=== PATIENT | female | born 1935 | race Caucasian/White ===

== ENCOUNTER 2016-10-31 15:32 | Observation (INO) | payer MEDICARE, OTHER ==
[~2016-10-31] VITALS: Ht 165.1 cm; Wt 103.9 kg
[2016-10-31 15:34] VITALS: BP 82/45
[2016-10-31] MEDS ORDERED: ATIVAN GENERIC0.5 MG PO (15:42)
[2016-10-31] MEDS ORDERED: MECLIZINE HYDRO25 M2 PO (15:43)
[2016-10-31] MEDS ORDERED: ATORVASTATIN CA40 MG PO (15:43)
[2016-10-31] MEDS ORDERED: GABAPENTIN300 M1 PO (15:44)
[2016-10-31] MEDS ORDERED: GLIMEPIRIDE1 MG PO (15:45)
[2016-10-31] MEDS ORDERED: HYDROCHLOROTHIA1 TA2 PO (15:45)
[2016-10-31] MEDS ORDERED: ROPINIROLE HYDRO1 M1 PO (15:46)
[2016-10-31 15:52] LABS: LYMPH % 26.9 % (10-50.0)
[2016-10-31 15:53] LABS: LYMPH # 2.2 K/mm3 (0.7-4.5)
[2016-10-31 15:59] LABS: HEMOGLOBIN 11.7 g/dL (12.2-16.2)
[2016-10-31 16:21] LABS: BUN 43 mg/dL (7-18)
[2016-10-31 16:22] LABS: FREE THYROXIN INDEX 5.7 ug/dl (5.93-13.13)
[2016-10-31 16:24] LABS: GFR (ESTIMATED) 21 ML/MIN (59-)
--- NOTE | 2016-10-31 18:04 | Emergency Room Report ---
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 She was found to be hypotensive by EMS ~ 90 systolic. States she is exhausted and has been taking a benzo to help her nerves. 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 N Clinical Suspician of Infection? N Mental Status: 1 - Regular (Normal Baseline) Sepsis Risk:Low Sepsis Risk Have you (or family members/close friends) recently traveled outside the [place]? N If Yes, where/when: Have you had exposure to infectious disease within the past month? N TB? Other? Specify: Source patient, RN notes reviewed, family, RN/MD, EMS notes reviewed Exam Limitations no limitations Comment This is an 81-year-old lady who has been at her son's all day long, and now she feels dizzy, weak, presyncopal. One of her acquaintances has check her blood pressure, and a reading of 80/40 was obtained. Patient has been eating poorly over the past few days after her son , taking benzodiazepines for her anxiety and grief. She denies any chest pain or shortness of breath at this time. She hasn't slept well in 3 days. ALLERGIES Coded Allergies: No Known Allergies (10/31/16) Home Medications Reported Medications Lorazepam (Ativan) 0.5 MG PO TIDP PRN ANXIETY #20 MECLIZINE HCL (ANTIVERT 25MG (generic)) 25 MG PO TIDP PRN DIZZINESS #180 Atorvastatin Calcium 40 MG PO DAILY #90 Gabapentin 300 MG PO BID #180 Glimepiride 1 MG PO DAILY #90 LISINOPRIL/HYDROCHLOROTHIAZIDE (Lisinopril-Hctz 20-25 MG Tab) 1 TAB PO BID #180 ROPINIROLE HCL (Ropinirole Hydrochloride) 1 MG PO QHS #90 History Medical History General CAD? Yes Angina: No PR: No Hypertension? Yes Hyperlipidemia? Yes CHF? No DVT? No PE? No COPD? No Asthma? No Anemia? No GERD? No Gastric ulcers? No GI Bleed? No Hernia? No Thyroid Problems? No Hypothyroidism? No CVA? No Seizures? No Diabetes? Yes Insulin Dependent: No Insulin Pump: No Home FSBS? Yes Renal Insuffiency? No End Stage Renal Disease? No UTI? No Stones? No BPH? No GB Disease: No Nephritic Syndrome? No Asplenia? No Hepatitis? No Sickle Cell Disease? No Arthritis? Yes Migraines? No Cataracts? No Glaucoma? No MRSA? No HIV? No TB? No Anxiety? No Depression? No Cancer? No Site: N More? No Immunization Hx Ped.Immunizations UTD Yes DT/Tetanus Unknown Surgical Hx Previous Surgery?Y Gallbladder (Other) Social History Smoking Hx Smoker: Never Smoker Tobacco: No Type N/A Are you/the child exposed to second-hand smoke: No Alcohol Alcohol: No Review of Systems All Other Systems Reviewed and Negative Psychiatric/Neurological weakness, other (dizziness) Physical Exam Vital Signs Vital Signs Date Time Temp Pulse Resp B/P Pulse O2 O2 Flow FiO2 Ox Delivery Rate 10/31 1642 65 20 92/43 98 10/31 1611 85 113/33 10/31 1610 78 95/33 10/31 1610 76 118/50 10/31 1534 90 10/31 1534 98.2 82 18 82/45 90 General Appearance normal appearance, WD/WN, moderate distress, lethargic Neck normal inspection, non-tender, supple, full range of motion Respiratory Status Yes: trachea midline, chest symmetrical, non tender chest. No: respiratory distress. Lung Sounds bilateral: normal breath sounds, lungs clear. 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 Medical Decision Making LABS/Meds/Orders Pt receiving controlled substance in ED? No Comment 17:15-case d/w Dr Behzad Ramey, advised of patient's presentation, physical exam, electrocardiogram/lab findings, ED course, lack of any improvement after receiving a bag of IV fluids, as well as the orthostatic blood pressure changes, consistent with dehydration. Dr. Ramey agreeable with admission, place patient in telemetry/observation. Care transferred Dr. Ramey at this time. I will write temporary bridge admission orders, per hospital protocol. Upon patient's arrival to the unit, the thread laster/nurse will contact Dr. Ramey in order to obtain full inpatient admission orders. Results/Orders Laboratory Tests 10/31/161544: TSH 2.68, Free T4 Index 5.7 L, Thyroxine (T4) 6.0, T3 Uptake 38 10/31/161544: Sodium 140, Potassium 4.4, Chloride 104, Carbon Dioxide 24, BUN 43 H, Creatinine 2.2 H, Estimated Creat Clear 31 L, Estimated GFR (MDRD) 21 L, Glucose 96, Calcium 9.2, Total Bilirubin 0.4, AST 36, ALT 31, Alkaline Phosphatase 123 H, Creatine Kinase 356 H, CK and CKMB Interp 5.0 H, Troponin I < 0.02, Total Protein 7.3, Albumin 3.1 L, Globulin 4.2 H, Albumin/Globulin Ratio 0.7 L, WBC 8.0, RBC 3.58 L, Hgb 11.7 L, Hct 34.7 L, MCV 97.1, RDW 13.5 , Plt Count 272, MPV 6.6 L, Gran % 62.8, Gran # 5.0, Lymphocytes % 26.9, Monocytes % 6.0, Eosinophils % 4.0, Basophils % 0.3, Lymphocytes # 2.2, Monocytes # 0.5, Eosinophils # 0.3, Basophils # 0.0, PUBS MCHC 33.8, MCH 32.8 H Current Medication Orders Sig/Los Start time Last Medication Dose Route Stop Time Status Admin Aspirin 0 .STK-MED ONE 10/31 1554 DC .ROUTE Aspirin 325 MG ONCE ONE 10/31 1545 DC 10/31 PO 10/31 1546 1557 Sodium Chloride 10 ML PRN PRN 10/31 1545 AC IV 11/01 1537 Sodium Chloride 1,000 ML .Q1H1M 10/31 154 DC 10/31 IV 10/31 1645 1550 Sodium Chloride 10 ML PRN PRN 10/31 1545 AC IV 11/01 1538 Sodium Chloride 1,000 ML .STK-MED ONE 10/31 1536 DC IV Orders Procedure Date/time Status 12 LEAD EKG-YOLYSON (INITIAL) 10/31 1540 Active THYROID PANEL 2 (WITH TSH) 10/31 1539 Complete ELECTROCARDIOGRAM REQUEST 10/31 1538 Active IV SALINE LOCK 10/31 1538 Active OXYGEN PER NURSE 10/31 1538 Active POCKET CUTTER 10/31 1538 Active ORTHOSTATIC B/P 10/31 1538 Active TROPONIN I 10/31 1538 Complete DRUG ABUSE SCREEN (10) 10/31 1538 Active CPK 10/31 1538 Complete COMPLETE METABOLIC PANEL 10/31 1538 Complete CKMB 10/31 1538 Complete CBC WITH AUTO DIFF 10/31 1538 Complete ORTHOSTATIC B/P 10/31 1537 Active CM/EKG CM/presser automatic Rhythm Normal Sinus Rhythm Rate 85 Ectopy No Comments No acute ischemic changes EKG rate, NSR, rhythm, no evid. of ischemic chgs, no ectopy, normal QRS, normal OH, no EKG for comparison, non-spec. ST/Twave chgs, ST elevation, ST depression, LBBB, RBBB, ectopy, abnormal Q waves Departure Departure Time of Disposition 1715 Disposition Still a Patient Clinical Impression Primary Impression: Hypotension Qualifiers: Hypotension type: unspecified hypotension type Qualified Code: I95.9 - Hypotension, unspecified Secondary Impressions: Acute kidney injury Dehydration Generalized weakness Rhabdomyolysis Qualifiers: Rhabdomyolysis type: non-traumatic Qualified Code: M62.82 - Rhabdomyolysis Condition STABLE Referrals Tomasa Ramey MD (Family) ED Critical Care Critical Care No at 1912
--- NOTE | 2016-10-31 18:04 | Emergency Room Report ---
History of Present Illness Time Seen by [id number] Presenting Problem in Triage Pt arrived:Ambulance Stretcher Presenting Problem:Patient was at her son's when she became weak and dizzy. She was found to be hypotensive by EMS ~ 90 systolic. States she is exhausted and has been taking a benzo to help her nerves. 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 N Clinical Suspician of Infection? N Mental Status: 1 - Regular (Normal Baseline) Sepsis Risk:Low Sepsis Risk Have you (or family members/close friends) recently traveled outside the [place]? N If Yes, where/when: Have you had exposure to infectious disease within the past month? N TB? Other? Specify: Source patient, RN notes reviewed, family, RN/MD, EMS notes reviewed Exam Limitations no limitations Comment This is an 81-year-old lady who has been at her son's all day long, and now she feels dizzy, weak, presyncopal. One of her acquaintances has check her blood pressure, and a reading of 80/40 was obtained. Patient has been eating poorly over the past few days after her son , taking benzodiazepines for her anxiety and grief. She denies any chest pain or shortness of breath at this time. She hasn't slept well in 3 days. ALLERGIES Coded Allergies: No Known Allergies (10/31/16) Home Medications Reported Medications Lorazepam (Ativan) 0.5 MG PO TIDP PRN ANXIETY #20 MECLIZINE HCL (ANTIVERT 25MG (generic)) 25 MG PO TIDP PRN DIZZINESS #180 Atorvastatin Calcium 40 MG PO DAILY #90 Gabapentin 300 MG PO BID #180 Glimepiride 1 MG PO DAILY #90 LISINOPRIL/HYDROCHLOROTHIAZIDE (Lisinopril-Hctz 20-25 MG Tab) 1 TAB PO BID #180 ROPINIROLE HCL (Ropinirole Hydrochloride) 1 MG PO QHS #90 History Medical History General CAD? Yes Angina: No NE: No Hypertension? Yes Hyperlipidemia? Yes CHF? No DVT? No PE? No COPD? No Asthma? No Anemia? No GERD? No Gastric ulcers? No GI Bleed? No Hernia? No Thyroid Problems? No Hypothyroidism? No CVA? No Seizures? No Diabetes? Yes Insulin Dependent: No Insulin Pump: No Home FSBS? Yes Renal Insuffiency? No End Stage Renal Disease? No UTI? No Stones? No BPH? No GB Disease: No Nephritic Syndrome? No Asplenia? No Hepatitis? No Sickle Cell Disease? No Arthritis? Yes Migraines? No Cataracts? No Glaucoma? No MRSA? No HIV? No TB? No Anxiety? No Depression? No Cancer? No Site: N More? No Immunization Hx Ped.Immunizations UTD Yes DT/Tetanus Unknown Surgical Hx Previous Surgery?Y Gallbladder (Other) Social History Smoking Hx Smoker: Never Smoker Tobacco: No Type N/A Are you/the child exposed to second-hand smoke: No Alcohol Alcohol: No Review of Systems All Other Systems Reviewed and Negative Psychiatric/Neurological weakness, other (dizziness) Physical Exam Vital Signs Vital Signs Date Time Temp Pulse Resp B/P Pulse O2 O2 Flow FiO2 Ox Delivery Rate 10/31 1642 65 20 92/43 98 10/31 1611 85 113/33 10/31 1610 78 95/33 10/31 1610 76 118/50 10/31 1534 90 10/31 1534 98.2 82 18 82/45 90 General Appearance normal appearance, WD/WN, moderate distress, lethargic Neck normal inspection, non-tender, supple, full range of motion Respiratory Status Yes: trachea midline, chest symmetrical, non tender chest. No: respiratory distress. Lung Sounds bilateral: normal breath sounds, lungs clear. 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 Medical Decision Making LABS/Meds/Orders Pt receiving controlled substance in ED? No Comment 17:15-case d/w Dr Behzad Ramey, advised of patient's presentation, physical exam, electrocardiogram/lab findings, ED course, lack of any improvement after receiving a bag of IV fluids, as well as the orthostatic blood pressure changes, consistent with dehydration. Dr. Ramey agreeable with admission, place patient in telemetry/observation. Care transferred Dr. Ramey at this time. I will write temporary bridge admission orders, per hospital protocol. Upon patient's arrival to the unit, the dental secretary/nurse will contact Dr. Ramey in order to obtain full inpatient admission orders. Results/Orders Laboratory Tests 10/31/161544: TSH 2.68, Free T4 Index 5.7 L, Thyroxine (T4) 6.0, T3 Uptake 38 10/31/161544: Sodium 140, Potassium 4.4, Chloride 104, Carbon Dioxide 24, BUN 43 H, Creatinine 2.2 H, Estimated Creat Clear 31 L, Estimated GFR (MDRD) 21 L, Glucose 96, Calcium 9.2, Total Bilirubin 0.4, AST 36, ALT 31, Alkaline Phosphatase 123 H, Creatine Kinase 356 H, CK and CKMB Interp 5.0 H, Troponin I < 0.02, Total Protein 7.3, Albumin 3.1 L, Globulin 4.2 H, Albumin/Globulin Ratio 0.7 L, WBC 8.0, RBC 3.58 L, Hgb 11.7 L, Hct 34.7 L, MCV 97.1, RDW 13.5 , Plt Count 272, MPV 6.6 L, Gran % 62.8, Gran # 5.0, Lymphocytes % 26.9, Monocytes % 6.0, Eosinophils % 4.0, Basophils % 0.3, Lymphocytes # 2.2, Monocytes # 0.5, Eosinophils # 0.3, Basophils # 0.0, PUBS MCHC 33.8, MCH 32.8 H Current Medication Orders Sig/Los Start time Last Medication Dose Route Stop Time Status Admin Aspirin 0 .STK-MED ONE 10/31 1554 DC .ROUTE Aspirin 325 MG ONCE ONE 10/31 1545 DC 10/31 PO 10/31 1546 1557 Sodium Chloride 10 ML PRN PRN 10/31 1545 AC IV 11/01 1537 Sodium Chloride 1,000 ML .Q1H1M 10/31 154 DC 10/31 IV 10/31 1645 1550 Sodium Chloride 10 ML PRN PRN 10/31 1545 AC IV 11/01 1538 Sodium Chloride 1,000 ML .STK-MED ONE 10/31 1536 DC IV Orders Procedure Date/time Status 12 LEAD EKG-YOLYSON (INITIAL) 10/31 1540 Active THYROID PANEL 2 (WITH TSH) 10/31 1539 Complete ELECTROCARDIOGRAM REQUEST 10/31 1538 Active IV SALINE LOCK 10/31 1538 Active OXYGEN PER NURSE 10/31 1538 Active 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 of ischemic chgs, no ectopy, normal QRS, normal NC, no EKG for comparison, non-spec. ST/Twave chgs, ST elevation, ST depression, LBBB, RBBB, ectopy, abnormal Q waves Departure Departure Time of Disposition 1715 Disposition Still a Patient Clinical Impression Primary Impression: Hypotension Qualifiers: Hypotension type: unspecified hypotension type Qualified Code: I95.9 - Hypotension, unspecified Secondary Impressions: Acute kidney injury Dehydration Generalized weakness Rhabdomyolysis Qualifiers: Rhabdomyolysis type: non-traumatic Qualified Code: M62.82 - Rhabdomyolysis Condition STABLE Referrals Tomasa Ramey MD (Family) ED Critical Care Critical Care No at 1912
[2016-10-31 18:53] VITALS: BP 136/68
[2016-10-31 19:02] VITALS: BP 136/68
[2016-10-31] MEDS ORDERED: VITAMIN C500 M6 PO (19:11)
[2016-10-31] MEDS ORDERED: MULTI-DAY VITA1 EACH PO (19:12)
[2016-10-31] MEDS ORDERED: METAMUCIL0.4 GM PO (19:15)
[2016-10-31] MEDS ORDERED: HEARTBURN RELIE75 MG PO (19:16)
[2016-10-31 20:05] VITALS: BP 148/75
[2016-11-01 01:28] VITALS: BP 151/58
--- NOTE | 2016-11-01 04:25 | PHARMACY CLINIC NOTE ---
Patient Demographics Patient Demographics Admission date: 10/31/16 Date: 11/01/16 Time: 424 Allergies Coded Allergies: No Known Allergies (10/31/16) HEIGHT- FT: 5 IN: 5.00 K.931 VTE General Information Labs: Laboratory Tests 10/31 1545 Hematology Hgb (12.2 - 16.2 g/dL) 11.7 L Hct (37.0 - 47.0 %) 34.7 L Plt Count (142 - 424 K/mm3) 272 Disclaimer The following section includes nursing documentation that has been pulled in for pharmacy review. Patient's VTE score: 2 Patient's VTE Risk: VERY LOW RISK Clinical trial participant? No VTE prophylaxis [id number] VTE prophylaxis ordered? Yes Type of prophylaxis/treatment: BERTHA at [id number]
[2016-11-01 06:12] LABS: AMPHETAMINES/METAMPHETAMINES NEGATIVE ng/mL (<1000)
[2016-11-01 07:26] LABS: LYMPH # 2.1 K/mm3 (0.7-4.5)
[2016-11-01 07:49] VITALS: BP 168/63
--- NOTE | 2016-11-01 08:24 | HISTORY AND PHYSICAL REPORT ---
History and Physical ([facility]) Date of admission: 10/31/16 Chief complaint: Weakness, dizziness, hypotension History: History of Present Illness: Ms. Clayton is an 81-year-old female who had been at her son's all day long, and began feeling dizzy, weak, and presyncopal. One of her acquaintances checked her blood pressure and it was 80/40. She was brought to the ER for evaluation. She states she has been eating poorly over the past few days since her son . She has tried to drink but her daughter states she has not been drinking enough. She has still been taking all of her medications. She denies any chest pain or shortness of breath. She hasn't slept well in 3 days. She states she does feel better this am and has been eating and drinking. Past Medical History: Medical History: CAD? Yes Angina: No AL: No Hypertension? Yes Hyperlipidemia? Yes CHF? No DVT? No PE? No COPD? No Asthma? No Anemia? No GERD? No Gastric ulcers? No GI Bleed? No Hernia? No Thyroid Problems? No Hypothyroidism? No CVA? No Seizures? No Diabetes? Yes Insulin Dependent: No Insulin Pump: No Home FSBS? Yes Renal Insuffiency? No UTI? No Stones? No BPH? No GB Disease: No Nephritic Syndrome? No Asplenia? No Hepatitis? No Sickle Cell Disease? No Arthritis? Yes Migraines? No Cataracts? No Glaucoma? No MRSA? No HIV? No TB? No Anxiety? No Depression? No Cancer? No Site: N More? No Surgical history: Previous Surgery?Y Gallbladder, BTL Medications: Reported Medications Ascorbate Calcium (Vitamin C) 500 MG PO DAILY Multivitamin (Multi-Day Vitamins) 1 EACH PO DAILY Psyllium Husk (Metamucil) 0.4 GM PO Ranitidine HCl (Heartburn Relief) 75 MG PO Lorazepam (Ativan) 0.5 MG PO TIDP PRN ANXIETY #20 MECLIZINE HCL (ANTIVERT 25MG (generic)) 25 MG PO TIDP PRN DIZZINESS #180 Atorvastatin Calcium 40 MG PO DAILY #90 Gabapentin 300 MG PO BID #180 Glimepiride 1 MG PO DAILY #90 LISINOPRIL/HYDROCHLOROTHIAZIDE (Lisinopril-Hctz 20-25 MG Tab) 1 TAB PO BID #180 ROPINIROLE HCL (Ropinirole Hydrochloride) 1 MG PO QHS #90 Allergies: Coded Allergies: No Known Allergies (10/31/16) Family History: Family history: Postive for: CAD, HTN, stroke. Social History: Smoking Hx Tobacco: No Smoker: Never Smoker Type: N/A Packs/day: N/A Are you exposed to second hand No Alcohol: Alcohol: No Hx of Drug Use: Drug Use? No Review of Systems: Constitutional Positive for: fatigue, lethargy, malaise, weak. ENT Positive for: nasal congestion, sore throat. Cardiovascular Positive for: chest pain, edema, palpitations. Respiratory Positive for: shortness of air, productive cough (sputum), wheezing. GI Positive for: abdominal pain, diarrhea, nausea, vomitting. (female) No: frequency, hematuria. Neurological Positive for: dizziness, weakness. No: headache, syncope. Musculoskeletal No: extremity pain, joint pain, myalgias. Physical Exam: Vital signs: 1ST Vital Signs Result Date Time Pulse Ox 90 10/31 1534 B/P 82/45 10/31 1534 Temp 98.2 10/31 1534 Pulse 82 10/31 1534 Resp 18 10/31 1534 O2 Delivery OXYGEN 10/31 1853 O2 Flow Rate 2 10/31 2004 Exam: General appearance: alert, awake, no acute distress Eyes: EOM's w/normal ROM, PERRLA ENT: mucous membranes moist, nose normal, pharynx normal, tympanic membranes normal Neck: non-tender, no carotid bruit, full range of motion, supple Cardiovascular: regular rate & rhythm Respiratory: clear to auscultation ABD: non-distended, normal bowel sounds, no rebound, soft, no tenderness, no guarding Extremities: no peripheral edema Musculoskeletal: equal muscle strength, motor intact, sensation intact Skin: normal color Neuro: normal mood/affect, oriented, speech clear Lab data: Labs: Laboratory Tests 11/01/16 0630: Sodium 144, Potassium 4.3, Chloride 110 H, Carbon Dioxide 23, BUN 37 H, Creatinine 1.6 H, Estimated Creat Clear 44 L, Estimated GFR (MDRD) 31 L, Glucose 74, Calcium 9.1, Total Bilirubin 0.4, AST 31, ALT 26, Alkaline Phosphatase 105, Total Protein 6.5, Albumin 2.7 L, Globulin 3.8 H, Albumin/ Globulin Ratio 0.7 L, WBC 6.2, RBC 3.48 L, Hgb 11.0 L, Hct 34.0 L, MCV 97.8, RDW 13.4, Plt Count 216, MPV 6.5 L, Gran % 52.8, Gran # 3.3, Lymphocytes % 33.0 , Monocytes % 6.8, Eosinophils % 7.2, Basophils % 0.3, Lymphocytes # 2.1, Monocytes # 0.4, Eosinophils # 0.5 H, Basophils # 0.0, PUBS MCHC 32.2, MCH 31.5 H 11/01/16 0539: POC Glucose 59 L 11/01/16 0120: Creatine Kinase 225 H, CK-MB (CK-2) Rel Index 1.5, CK and CKMB Interp 3.4, Troponin I < 0.02 10/31/16 1930: Creatine Kinase 324 H, CK-MB (CK-2) Rel Index 1.6, CK and CKMB Interp 5.2 H, Troponin I < 0.02 10/31/16 1545: TSH 2.68, Free T4 Index 5.7 L, Thyroxine (T4) 6.0, T3 Uptake 38 10/31/16 1545: Sodium 140, Potassium 4.4, Chloride 104, Carbon Dioxide 24, BUN 43 H, Creatinine 2.2 H, Estimated Creat Clear 31 L, Estimated GFR (MDRD) 21 L, Glucose 96, Calcium 9.2, Total Bilirubin 0.4, AST 36, ALT 31, Alkaline Phosphatase 123 H, Creatine Kinase 356 H, CK and CKMB Interp 5.0 H, Troponin I < 0.02, Total Protein 7.3, Albumin 3.1 L, Globulin 4.2 H, Albumin/Globulin Ratio 0.7 L, WBC 8.0, RBC 3.58 L, Hgb 11.7 L, Hct 34.7 L, MCV 97.1, RDW 13.5 , Plt Count 272, MPV 6.6 L, Gran % 62.8, Gran # 5.0, Lymphocytes % 26.9, Monocytes % 6.0, Eosinophils % 4.0, Basophils % 0.3, Lymphocytes # 2.2, Monocytes # 0.5, Eosinophils # 0.3, Basophils # 0.0, PUBS MCHC 33.8, MCH 32.8 H Diagnosis(es): 1. Hypotension Status: Acute 2. Rhabdomyolysis Status: Acute 3. Generalized weakness Status: Acute 4. Dehydration Status: Acute 5. ASCVD (arteriosclerotic cardiovascular disease) Status: Chronic 6. Hyperlipidemia Status: Chronic Plan: Patient's renal functions and CPK have decreased with hydration. She is feeling better this am and her BP has come up. Possible discharge later on today or tomorrow. (Erika Owusu) Diagnosis(es): 1. Dehydration Status: Acute 2. Hypotension Status: Acute 3. Acute renal insufficiency 4. Rhabdomyolysis Status: Acute 5. Generalized weakness Status: Acute 6. ASCVD (arteriosclerotic cardiovascular disease) Status: Chronic 7. Hyperlipidemia Status: Chronic 8. Type 2 diabetes mellitus Plan: Pt seen and examined. She is feeling much better. Has been up to BR on her own and feels stronger. Eating her breakfast. No CP or SOA. Labs are all improving. Will resume some of her home meds and continue IVFs. Possibly discharge home later today. (Tomasa Ramey MD) at 0824 at 0839
[2016-11-01] MEDS ORDERED: D-20001 TAB PO (09:16)
[2016-11-01] MEDS ORDERED: ADULT LOW DOSE81 MG PO (09:17)
[2016-11-01] MEDS ORDERED: COD LIVER OIL1 CAP PO (09:18)
[2016-11-01 09:52] VITALS: BP 168/63
[2016-11-01 11:51] VITALS: BP 134/79
[2016-11-01 15:30] VITALS: BP 158/59
[2016-11-01 18:33] VITALS: BP 158/59
--- NOTE | 2016-11-03 15:06 | DISCHARGE SUMMARY STANDARD ---
Discharge Summary ([facility]2) Date of admission: 10/31/16 Date of discharge: 11/01/16 Problem List: 1. Dehydration 2. Hypotension 3. Acute renal insufficiency 4. Rhabdomyolysis 5. Generalized weakness 6. ASCVD (arteriosclerotic cardiovascular disease) 7. Hyperlipidemia 8. Type 2 diabetes mellitus History of present illness: Ms. Clayton is an 81-year-old female who had been at her son's all day long, and began feeling dizzy, weak, and presyncopal. One of her acquaintances checked her blood pressure and it was 80/40. She was brought to the ER for evaluation. She stated she had been eating poorly over the few days since her son . She had tried to drink but her daughter stated she had not been drinking enough. She had still been taking all of her medications. She denied any chest pain or shortness of breath. She hadn't slept well in 3 days. Exam on admission: General appearance: alert, awake, no acute distress Eyes: EOM's w/normal ROM, PERRLA ENT: mucous membranes moist, nose normal, pharynx normal, tympanic membranes normal Neck: non-tender, no carotid bruit, full range of motion, supple Cardiovascular: regular rate & rhythm Respiratory: clear to auscultation ABD: non-distended, normal bowel sounds, no rebound, soft, no tenderness, no guarding Extremities: no peripheral edema Musculoskeletal: equal muscle strength, motor intact, sensation intact Skin: normal color Neuro: normal mood/affect, oriented, speech clear Hospital Course: The patient's CPK and renal functions were both elevated. She was started on IVF's and her renal function and CPK improved. She felt much better the am after admission and her BP had come up. She was able to get up and go to the BR on her own and felt much stronger. She ate most of her breakfast. She denied CP and SOA. Some of her home meds were resumed and her IVF's were continued. By the evening after admission, she was stable to be discharged home. Discharge medications: Continue taking these medications: Lorazepam (Ativan) 0.5 MG TABLET 0.5 MILLIGRAM ORAL THREE TIMES A DAY NEEDED as needed for ANXIETY Qty = 20 MECLIZINE HCL (ANTIVERT 25MG (generic)) 25 MG TABLET 25 MILLIGRAM ORAL THREE TIMES A DAY NEEDED as needed for DIZZINESS Qty = 180 Atorvastatin Calcium (Atorvastatin Calcium) 40 MG TABLET 40 MILLIGRAM ORAL AT BEDTIME NIGHTLY Qty = 90 Gabapentin (Gabapentin) 300 MG CAPSULE 300 MILLIGRAM ORAL TWICE A DAY Qty = 180 Glimepiride (Glimepiride) 1 MG TABLET 1 MILLIGRAM ORAL EVERY MORNING Qty = 90 LISINOPRIL/HYDROCHLOROTHIAZIDE (Lisinopril-Hctz 20-25 MG Tab) 1 EACH TABLET 1 TABLET ORAL TWICE A DAY Qty = 180 ROPINIROLE HCL (Ropinirole Hydrochloride) 1 MG TABLET 1 MILLIGRAM ORAL AT BEDTIME NIGHTLY Qty = 90 Ascorbate Calcium (Vitamin C) 500 MG TABLET 500 MILLIGRAM ORAL DAILY Multivitamin (Multi-Day Vitamins) 1 EACH TABLET 1 EACH ORAL DAILY Psyllium Husk (Metamucil) 0.4 GRAM CAPSULE 0.4 GRAM ORAL DAILY Ranitidine HCl (Heartburn Relief) 75 MG TABLET 75 MILLIGRAM ORAL TWICE A DAY as needed for HEARTBURN/ ACID REFLUX CHOLECALCIFEROL (VITAMIN D3) (Vitamin D) 2,000 UNIT TABLET 1 TABLET ORAL DAILY Aspirin (Adult Low Dose Aspirin EC) 81 MG TABLET. 81 MILLIGRAM ORAL DAILY Cod Liver Oil (Cod Liver Oil) 1 EACH CAPSULE 1 CAPSULE ORAL TWICE A DAY Disposition: F/u with: Tomasa Ramey MD Follow up: 5-7 days Activity: Cont Current activity Diet: Diabetic Diet Discharge to: HOME Agency needed? N at 1505
== END 2016-11-01 19:00 | disposition home or self-care (01) ==
LOC: ER 15:32 → 2ND 17:52
PROVIDERS: Emergency Medicine
DX: E86.0 Dehydration (principal); I95.9 Hypotension, unspecified; E11.9 Type 2 diabetes mellitus without complications; I10 Essential (primary) hypertension; I25.10 Atherosclerotic heart disease of native coronary artery without angina pectoris; M62.82 Rhabdomyolysis; Z79.899 Other long term (current) drug therapy
CPT/HCPCS: G0378